=== PATIENT | female | born 1960 | race Caucasian/White ===

== ENCOUNTER 2018-12-06 22:57 | Emergency (ER) | payer OTHER ==
[~2018-12-06] VITALS: Ht 165.1 cm; Wt 68.0 kg
[2018-12-06] MEDS ORDERED: BISOPROLOL FUMAR5 MG (23:18)
[2018-12-06] MEDS ORDERED: CRESTOR5 MG (23:18)
[2018-12-07] MEDS ORDERED: PROTONIX40 MG PO (08:25)
[2018-12-07] MEDS ORDERED: LEVSIN/SL0.125 MG SL (08:25)
[2018-12-07] MEDS ORDERED: CIPRO500 MG PO (08:25)
[2018-12-07] MEDS ORDERED: PEPCID40 MG PO (08:25)
== END 2018-12-07 08:39 | disposition home or self-care (01) ==
LOC: ER 22:57
DX: K52.9 Noninfective gastroenteritis and colitis, unspecified (principal)

== ENCOUNTER 2020-06-13 14:31 | Emergency (ER) | payer OTHER ==
[~2020-06-13] VITALS: Ht 165.1 cm; Wt 74.4 kg
[~2020-06-13 14:31] MED LIST: BISOPROLOL FUMAR5 MG; CIPRO500 MG PO; CRESTOR5 MG; LEVSIN/SL0.125 MG SL; PEPCID40 MG PO; PROTONIX40 MG PO
[2020-06-13] MEDS ORDERED: LOVAZA1 GM (14:43)
== END 2020-06-13 17:16 | disposition home or self-care (01) ==
LOC: ER 14:31
DX: J32.8 Other chronic sinusitis (principal)